=== PATIENT | female | born 1980 | race Caucasian/White ===

== ENCOUNTER → 2017-10-08 | Outpatient (CLI) | payer SELFPAY ==
--- NOTE | 2017-10-08 11:07 | MM ---
Reason for exam: clinical finding. History: Family history of breast cancer in mother at age 55 and breast cancer in grandmother at age 40. Took hormonal contraceptives beginning at age 19. Physical Findings: Nurse Summary: 2cm nodule in the left breast at 12 o'clock (nurse jane). MG 3D Diag Mammo W/Cad KELLEE Bilateral CC and MLO view(s) were taken. The breast tissue is extremely dense which could obscure a lesion on mammography. Stable benign calcifications. Nodular density at site of palpable. These results were verbally communicated with the patient and result sheet given to the patient on 10/08/17. ASSESSMENT: Incomplete: need additional imaging evaluation, BI-RAD 0 RECOMMENDATION: Ultrasound of the left breast. Manage patient on a clinical basis.
--- NOTE | 2017-10-08 11:09 | USB ---
Reason for exam: additional evaluation requested from abnormal screening. History: Family history of breast cancer in mother at age 55 and breast cancer in grandmother at age 40. Took hormonal contraceptives beginning at age 19. US Breast Workup Limited LT Left breast ultrasound demonstrates a 10 x 5 x 12mm oval, solid, hypoechoic lesion at 11 o'clock BB for which a biopsy is recommended and a 5 x 4 x 5mm oval, cystic lesion at 12 o'clock. These results were verbally communicated with the patient and result sheet given to the patient on 10/08/17. ASSESSMENT: Suspicious, BI-RAD 4 RECOMMENDATION: Ultrasound core biopsy of the left breast. Called Dr. Flores with mammographic findings and has scheduled an appointment for the patient for 10/22/17 at 9:[address] Vaca. PRELIMINARY REPORT CALLED AND FAXED TO DR. VACA ON 10/08/17.
== END | disposition home or self-care (01) ==
LOC: RADMAMWWP 08:01
PROVIDERS: ATTEND Obstetrics & Gynecology
DX: N64.4 Mastodynia (principal); N63.20 Unspecified lump in the left breast, unspecified quadrant
CPT/HCPCS: 77066; 76642; G0279

== ENCOUNTER → 2017-10-19 | Day surgery (SDC) | payer SELFPAY ==
[2017-10-19 13:41] VITALS: RESP 16; BMI 19.1
[2017-10-19 15:14] VITALS: BP 107/69; PULSE 71; TEMP 99.3
--- NOTE | 2017-10-19 15:38 | USB ---
EXAMINATION TYPE: US biopsy breast VAD LT DATE OF EXAM: 10/19/2017 CLINICAL HISTORY: 36-year-old female R92.8 Abnormal mammogram. Palpable abnormality left breast. Fami ly history of breast cancer in grandmother and mother. TECHNIQUE: Ultrasound guided core biopsy of the left breast. COMPARISON: Ultrasound and mammogram 10/08/2017 FINDINGS: The procedure of ultrasound guided core biopsy was explained to the patient. Benefits, alt ernatives, and risks were discussed. An informed consent was then obtained. The patient was placed in supine positioning for imaging and for the procedure. The overlying skin w as prepped and draped in usual sterile fashion. Lidocaine buffered with bicarbonate was used as anes thetic into the skin and subcutaneous tissue up to area of concern in the 11:00 left breast. Under ultrasound guidance, a 13-gauge vacuum-assisted mammotome Elite biopsy gun device was used to o btain 5 core samples. Following this, a coil clip was left in lesion. Decision was made to forego post biopsy mammogram. The patient tolerated the procedure well without any immediate complication. The patient was kept in the radiology department for short stay after the procedure and then discharged home in stable condi tion. IMPRESSION: Successful, uncomplicated ultrasound guided core biopsy of palpable lesion in the 11:00 left breast, possible fibroadenoma, full pathology results to follow.
== END ==
LOC: RADUSWWP 12:47
PROVIDERS: ATTEND Internal Medicine Hematology & Oncology
DX: D24.2 Benign neoplasm of left breast (principal)
CPT/HCPCS: 88305; 19083; A4648; J2001

== ENCOUNTER 2019-02-28 16:28 | Emergency (ER) | payer OTHER ==
[2019-02-28 16:49] VITALS: RESP 18
[2019-02-28] MEDS ORDERED: KETOROLAC 30 MG/ML 1 ML VIAL IVP STA (17:04)
[2019-02-28 17:34] LABS: Basophils # (A) 0.1 k/uL (0-0.2); Basophils % (A) 0 %; Eosinophils # (A) 0.1 k/uL (0-0.7); Eosinophils % (A) 1 %; HCT 44.1 % (34.0-46.0); HGB 14.9 gm/dL (11.4-16.0); Lymphocytes # (A) 1.4 k/uL (1.0-4.8); Lymphocytes % (A) 13 %; MCH 32.1 pg (25.0-35.0); MCHC 33.8 g/dL (31.0-37.0); Mean Platelet Volume 6.9; Monocytes # (A) 0.7 k/uL (0-1.0); Monocytes % (A) 6 %; Neutrophils # (A) 8.8 k/uL (1.3-7.7); Neutrophils % (A) 79 %; Platelet Count 236 k/uL (150-450); RBC 4.64 m/uL (3.80-5.40); WBC 11.2 k/uL (3.8-10.6)
--- NOTE | 2019-02-28 17:37 | ED ---
General Adult HPI - General Chief complaint: Extremity Problem,Nontraumatic Stated complaint: Lt breast pain/swollen Time Seen by Provider: 02/28/19 16:51 Source: patient Mode of arrival: ambulatory Limitations: no limitations - History of Present Illness Initial comments: This 38-year-old white female presents with a complaint of some left breast pain . She states that the lateral aspect of her left breast started hurting her yesterday. She states that the pain was fairly severe this past evening and it is worse today. She took some Motrin with some moderate to significant relief. She denies any known fevers. She states that he feels hot to touch. She denies any previous similar incidents. She does relate that she did have a mammogram last year and they found a lump in her left breast and she had a biopsy and this was found to be fibrocystic disease but no cancer. She denies any nipple drainage. No other rashes or changes in pigmentation. No other complaints or modifying factors. - Related Data Previous Rx's Medication Instructions Recorded Cephalexin [Keflex] 500 mg PO Q6HR #40 cap 02/28/19 Sulfamethox-Tmp 800-160Mg [Bactrim 1 tab PO Q12HR #20 tab 02/28/19 DS 800-160 mg] Allergies Allergy/AdvReac Type Severity Reaction Status Date / Time Penicillins Allergy Rash/Hives Verified 02/28/19 17:10 Review of Systems ROS Statement: Those systems with pertinent positive or pertinent negative responses have been documented in the HPI. ROS Other: All systems not noted in ROS Statement are negative. Past Medical History Past Medical History: No Reported History Additional Past Medical History / Comment(s): breast fibroids History of Any Multi-Drug Resistant Organisms: None Reported Additional Past Surgical History / Comment(s): 2005-uterine surgery after delivery of son Past Anesthesia/Blood Transfusion Reactions: No Reported Reaction Past Psychological History: No Psychological Hx Reported Smoking Status: Never smoker Past Alcohol Use History: Occasional Past Drug Use History: None Reported General Exam - General Exam Comments Initial Comments: Breast exam: There is tenderness noted to the left breast on the lateral half of the breast. There is some moderate to significant swelling. There is some warmth to touch but no significant erythema. There are some areas of induration noted but no definitive fluctuance. No erythema identified. Limitations: no limitations General appearance: alert, in no apparent distress Psychiatric exam: Present: normal affect, normal mood Skin exam: Present: intact. Absent: rash Course Vital Signs 02/28/19 02/28/19 16:45 18:49 Temperature 98.6 F 99.2 F Pulse Rate 92 74 Respiratory 18 18 Rate Blood Pressure 147/83 119/76 O2 Sat by Pulse 100 97 Oximetry Medical Decision Making - Medical Decision Making The patient was seen and examined. All diagnostics were reviewed. An IV is established and she does receive some Ancef as well as some Toradol intravenously. The laboratory does show a slight elevation of the white blood cell count but other values are normal. The ultrasound of the left breast does show multiple hyperechoic areas but there is no evidence of abscess. The patient does relate that she has a definite history of fibrocystic disease. The radiologist does recommend [facility]. The patient relates that she is currently enrolled with them and has a follow-up mammogram scheduled for early this next month. She does receive IV antibiotics here and it is felt as though she stable for discharge home with Bactrim and Keflex. She is fine with taking Motrin and/or Tylenol as needed for pain at home as well. Return parameters are discussed. Close follow-up is recommended. - Lab Data Result diagrams: 02/28/19 14:20 02/28/19 14:20 Lab Results 02/28/19 02/28/19 02/28/19 Range/Units 14:20 14:20 14:20 WBC 11.2 H (3.8-10.6) k/uL RBC 4.64 (3.80-5.40) m/uL Hgb 14.9 (11.4-16.0) gm/dL Hct 44.1 (34.0-46.0) % MCV 95.0 (80.0-100.0) fL MCH 32.1 (25.0-35.0) pg MCHC 33.8 (31.0-37.0) g/dL RDW 12.0 (11.5-15.5) % Plt Count 236 (150-450) k/uL Neutrophils % 79 % Lymphocytes % 13 % Monocytes % 6 % Eosinophils % 1 % Basophils % 0 % Neutrophils # 8.8 H (1.3-7.7) k/uL Lymphocytes # 1.4 (1.0-4.8) k/uL Monocytes # 0.7 (0-1.0) k/uL Eosinophils # 0.1 (0-0.7) k/uL Basophils # 0.1 (0-0.2) k/uL PT 9.7 (9.0-12.0) sec INR 0.9 (<1.2) APTT 25.6 (22.0-30.0) sec Sodium 139 (137-145) mmol/L Potassium 3.9 (3.5-5.1) mmol/L Chloride 105 (98-107) mmol/L Carbon Dioxide 25 (22-30) mmol/L Anion Gap 9 mmol/L BUN 10 (7-17) mg/dL Creatinine 0.58 (0.52-1.04) mg/dL Est GFR (CKD-EPI)AfAm >90 (>60 ml/min/1.73 sqM) Est GFR (CKD-EPI)NonAf >90 (>60 ml/min/1.73 sqM) Glucose 98 (74-99) mg/dL Calcium 9.4 (8.4-10.2) mg/dL Disposition Clinical Impression: Mastitis Disposition: HOME SELF-CARE Condition: Good Instructions (If sedation given, give patient instructions): Mastitis (ED) Additional Instructions: Please use Motrin and/or Tylenol if needed for additional pain or fever. Prescriptions: Sulfamethox-Tmp 800-160Mg [Bactrim DS 800-160 mg] 1 tab PO Q12HR #20 tab Cephalexin [Keflex] 500 mg PO Q6HR #40 cap Is patient prescribed a controlled substance at d/c from ED?: No Referrals: Juan M Colby MD [Primary Care Provider] - 03/03/19 Time of Disposition: 19:10
[2019-02-28 17:39] LABS: INR 0.9 (<1.2); Partial Thromboplastin Time 25.6 sec (22.0-30.0); Prothrombin Time 9.7 sec (9.0-12.0)
[2019-02-28 17:58] LABS: African American GFR (CKD) >90 (>60 ml/min/1.73 sqM); Anion Gap 9 mmol/L; Blood Urea Nitrogen 10 mg/dL (7-17); Calcium 9.4 mg/dL (8.4-10.2); Carbon Dioxide 25 mmol/L (22-30); Chloride 105 mmol/L (98-107); Glucose 98 mg/dL (74-99); Potassium 3.9 mmol/L (3.5-5.1); Sodium 139 mmol/L (137-145)
--- NOTE | 2019-02-28 18:37 | USB ---
EXAMINATION TYPE: US breast axilla LT DATE OF EXAM: 02/28/2019 CLINICAL HISTORY: Pain and swelling left breast/axilla x 1 day. family hx of breast CA. Hx left breas t biopsy. TECHNIQUE: Ultrasound breast axilla LT. COMPARISON: US FINDINGS: Limited exam. Patient needs follow up with [facility]. Scanned LUOQ 12:00-3:00 and left axilla. 1. Anechoic area seen left breast 12:00 zone a measurin.0 x 0.9 x 0.6 cm. 2. Hypoechoic area seen left breast 2:00 zone b/c measurin.5 x 1.4 x 0.9 cm. 3. Hypoechoic area with hyperechoic center and vascularity seen left axilla measurin.7 x 1.7 x 1.0 cm. Breast tissue appears heterogeneous throughout. *Pt needs follow up with [facility]. IMPRESSION: 1. SCANNED AREA IS NEGATIVE FOR LEFT BREAST ABSCESS. 2. LUOQ 12:00-3:00 and left axilla findings; would recommend follow up with [facility].
[2019-02-28 18:50] VITALS: BP 119/76; PULSE 74; TEMP 99.2
== END 2019-02-28 19:22 | disposition home or self-care (01) ==
LOC: EC 16:28
DX: N61.0 Mastitis without abscess (principal); D72.829 Elevated white blood cell count, unspecified; Z86.018 Personal history of other benign neoplasm; Z88.0 Allergy status to penicillin
CPT/HCPCS: 99284; 96365; 96375; 36415; 80048; 85025; 85610; 85730; 76642; J0690; J1885

== ENCOUNTER → 2019-03-24 | Outpatient (CLI) | payer SELFPAY | END | disposition home or self-care (01) | LOC: RADMAMWWP 13:32 | PROVIDERS: ATTEND Family Medicine | DX: Z53.9 Procedure and treatment not carried out, unspecified reason (principal) ==